=== PATIENT | male | born 1980 | race Caucasian/White ===

== ENCOUNTER 2021-04-09 20:24 | Inpatient (IN) | payer BC, OTHER ==
[~2021-04-09] VITALS: Ht 193 cm; Wt 86.4 kg
[~2021-04-09 20:24] MED LIST: CYCL-1 PO
[2021-04-09] MEDS ORDERED: morphine 4 MG/ML inj SYRINge IV ONE (20:45)
[2021-04-09] MEDS ORDERED: temazepam 15mg capsule PO PRN (21:00)
[2021-04-09] MEDS ORDERED: fentaNYL/PF 50MCG/1 ML 2ML syringe IV ONE (21:15)
[2021-04-09] MEDS ORDERED: fentaNYL/PF 50MCG/1 ML 2ML syringe ONE (21:16)
[2021-04-09 22:21] LABS: BASOPHILS % (AUTO) 0.2 % (0-1); EOSINOPHILS % (AUTO) 0 % (0-6); HEMATOCRIT 43.3 % (42.0-52.0); HEMOGLOBIN 14.7 g/dl (14.0-17.9); LYMPHOCYTES # (AUTO) 0.6 X10'3 (1.1-4.8); LYMPHOCYTES % (AUTO) 5.2 % (21-51); MEAN CORPUSCULAR HEMOGLOBIN 30.4 PG (27.0-31.0); MEAN CORPUSCULAR HGB CONC 34.1 g/dL (33.0-36.5); MEAN CORPUSCULAR VOLUME 89.3 FL (78-98); MEAN PLATELET VOLUME 9.3 FL (7.4-10.4); MONOCYTES # (AUTO) 0.6 X10'3 (0-0.9); MONOCYTES % (AUTO) 5.7 % (2-12); NEUTROPHILS # (AUTO) 9.8 X10'3 (1.8-7.7); NEUTROPHILS % (AUTO) 88.9 % (42-75); PLATELET COUNT 138 X10'3 (140-440); RED BLOOD COUNT 4.85 X10'6 (4.70-6.10); RED CELL DISTRIBUTION WIDTH 12.5 % (11.5-14.5)
[2021-04-09 22:28] LABS: PARTIAL THROMBOPLASTIN TIME 25 SECONDS (22-32)
[2021-04-09 22:30] LABS: ALANINE AMINOTRANSFERASE 25 U/L (12-78); ALBUMIN 4.2 G/DL (3.4-5.0); ALBUMIN/GLOBULIN RATIO 1.6 (1.1-1.5); ALKALINE PHOSPHATASE 68 IU/L (46-116); ANION GAP 8 (8-16); ASPARTATE AMINO TRANSFERASE 17 U/L (10-37); BILIRUBIN,TOTAL 0.4 MG/DL (0.1-1.0); BLOOD UREA NITROGEN 24 MG/DL (7-18); BUN/CREATININE RATIO 21.2 (5.4-32.0); CALCIUM 8.3 MG/DL (8.5-10.1); CHLORIDE 107 MMOL/L (99-107); CREATININE 1.13 MG/DL (0.60-1.10); GLUCOSE 117 MG/DL (70-104); POTASSIUM 3.9 MMOL/L (3.5-5.1); SODIUM 143 MMOL/L (135-145); TOTAL CARBON DIOXIDE 27.7 MMOL/L (24-32); TOTAL PROTEIN 6.9 G/DL (6.4-8.2); eGFR 72 ML/MIN
[2021-04-09] MEDS ORDERED: morphine 4 MG/ML inj SYRINge IV PRN (23:10)
[2021-04-09] MEDS ORDERED: NO HOME MEDS (23:18)
[2021-04-09] MEDS ORDERED: acetaminophen 650mg rectal suppository RC PRN (23:20)
[2021-04-09] MEDS ORDERED: ondansetron 4mg rapidly disintigrating tab PO PRN (23:20)
[2021-04-09] MEDS ORDERED: magnesium hydroxide 30ml (MOM) UD suspension PO PRN (23:20)
[2021-04-09] MEDS ORDERED: HYDROcodone/acetaminophen 5mg/325mg tablet PO PRN (23:20)
[2021-04-09] MEDS ORDERED: diphenhydrAMINE 25mg capsule PO PRN (23:20)
[2021-04-09] MEDS ORDERED: acetaminophen 325mg tablet PO PRN ×2 (23:20)
[2021-04-09] MEDS ORDERED: bisacodyl 10mg suppository rectal RC PRN (23:20)
[2021-04-09] MEDS ORDERED: ondansetron/PF 4mg/2ml inj IV PRN (23:20)
[2021-04-09] MEDS ORDERED: morphine 2 MG/ML inj. syringe IV PRN ×2 (23:20)
[2021-04-09] MEDS ORDERED: diphenhydrAMINE 50 mg/ml inj IV PRN (23:20)
[2021-04-09] MEDS ORDERED: mag hydrox/Alum hydrox/simeth 30ml oral suspension PO PRN (23:20)
[2021-04-09 23:38] LABS: HEMOGLOBIN A1C 5.3 % (4.5-6.2)
[2021-04-09] MEDS: HYDROcodone/acetaminophen 10/325mg tab PO PRN (23:42)
[2021-04-09] MEDS: pantoprazole 40 MG vial IV SCH (23:43)
[2021-04-09] MEDS: normal saline 1000ml 1,000 ML IV SCH (23:43)
[2021-04-09 23:45] LABS: PHOSPHORUS 2.5 MG/DL (2.3-4.5)
[2021-04-09] MEDS: heparin, porcine 5000 units/ml vial SQ SCH (23:52)
[2021-04-10] VITALS (13 sets, daily range): BP systolic 97–130; BP diastolic 51–76
[2021-04-10 01:40] LABS: CLARITY,URINE CLEAR (Clear); COLOR,URINE YELLOW (Yellow); GLUCOSE, URINE NEGATIVE (Neg); KETONES,URINE NEGATIVE (Neg); LEUKOCYTE ESTERASE ,URINE NEGATIVE (Neg); NITRITES, URINE NEGATIVE (Neg); OCCULT BLOOD,URINE TRACE-LYSED (Neg); PH,URINE 6.5 (4.8-8.0); PROTEIN,URINE TRACE mg/dl (Neg); UA COLLECTION TYPE CLN CATCH MIDSTREAM; UROBILINOGEN,URINE 0.2 E.U/dL (0.2-1.0)
[2021-04-10 01:41] LABS: RBC,URINE 0-2 /HPF (0-2); WBC,URINE NONE SEEN /HPF (0-4)
[2021-04-10 01:42] LABS: BACTERIA,URINE NONE SEEN /HPF (Neg); CAL OXALATE CRYSTALS FEW /HPF (NEGATIVE); SQUAMOUS EPITHELIAL CELL,UR NONE SEEN /LPF (FEW)
[2021-04-10 01:47] LABS: URINE AMPHETAMINE SCREEN NEGATIVE (Neg); URINE BARBITUATE SCREEN NEGATIVE (Neg); URINE BENZODIAZEPINES SCREEN NEGATIVE (Neg); URINE CANNABINOID SCREEN NEGATIVE (Neg); URINE COCAINE SCREEN NEGATIVE (Neg); URINE METHADONE SCREEN NEGATIVE (Neg); URINE OPIATE SCREEN POSITIVE (Neg); URINE PHENCYCLIDINE SCREEN NEGATIVE (Neg)
[2021-04-10] MEDS: HYDROmorphone inj. 0.5 MG/0.5 ML DISP.SYRIN IV PRN ×2 (02:17→06:38)
[2021-04-10] MEDS ORDERED: ringers solution, lacted 1,000 ML IV ONE (02:35)
[2021-04-10] MEDS: HYDROcodone/acetaminophen 10/325mg tab PO PRN ×2 (07:26→14:57)
[2021-04-10] MEDS ORDERED: docusate sod 100mg capsule PO SCH (08:00)
[2021-04-10] MEDS: heparin, porcine 5000 units/ml vial SQ SCH (08:00)
[2021-04-10] MEDS: pantoprazole 40 MG vial IV SCH (08:43)
[2021-04-10] MEDS ORDERED: HYDROmorphone inj. 0.5 MG/0.5 ML DISP.SYRIN IV ONE (09:50)
[2021-04-10] MEDS: normal saline 1000ml 1,000 ML IV SCH (10:28)
--- NOTE | 2021-04-10 11:01 | NUR ---
PER PT OK TO GIVE HIS GIRLFRIEND WILLIAM INFORMATION. KRYSTINA
[2021-04-10] MEDS ORDERED: cefazolin/dext.iso 2gm/100ml 100 ML IV ONE (11:43)
[2021-04-10] MEDS ORDERED: ringers solution, lacted 1,000 ML IV SCH ×2 (11:50→14:10)
[2021-04-10] MEDS ORDERED: sevoflurane 250ml liquid IH ONE (13:03)
[2021-04-10] MEDS ORDERED: midazolam 1 mg/ML 2ml injection ONE (13:06)
[2021-04-10] MEDS ORDERED: fentaNYL /PF 50mcg/ml 5ml ampule ONE (13:06)
[2021-04-10] MEDS ORDERED: propofol inj 20 ML IV ONE (13:22)
[2021-04-10] MEDS ORDERED: rocuronium 10mg/ml inj IV ONE (13:22)
[2021-04-10] MEDS ORDERED: LIDOcaine 2% (20mg/ml) 5ml vial ONE (13:23)
[2021-04-10] MEDS ORDERED: BUPIVAcaine 0.5% inj/PF 30 ML ONE (13:28)
--- NOTE | 2021-04-10 13:40 | NUR ---
Received from OR via , accompanied by Anesthesiologist and report given by Anesthesiolgist. PATIENT A&OX4, DENIES PAIN, V/S WNL, CSM INTACT, 20G PIV RUE, DRESSING TO LEFT HIP CDI SCD ON.
[2021-04-10] MEDS ORDERED: neostigmine methylsulfate 1 MG/ML 10ml vial ONE (13:47)
[2021-04-10] MEDS ORDERED: dexamethasone sod phosphate 4mg/ml inj. ONE (13:47)
[2021-04-10] MEDS ORDERED: ondansetron/PF 4mg/2ml inj ONE (13:47)
[2021-04-10] MEDS ORDERED: acetaminophen 1,000mg/100ml IV 100 ML IV ONE (13:47)
[2021-04-10] MEDS ORDERED: glycopyrrolate 0.2mg/ml inj ONE (13:47)
[2021-04-10] MEDS ORDERED: meperidine/PF 25mg/ml syringe IV PRN ×3 (14:10)
[2021-04-10] MEDS ORDERED: ondansetron/PF 4mg/2ml inj IV PRN (14:10)
[2021-04-10] MEDS ORDERED: proCHLORperazine 10 MG/2 ml inj IV PRN (14:10)
[2021-04-10] MEDS ORDERED: morphine 4 MG/ML inj SYRINge IV PRN (14:10)
[2021-04-10] MEDS ORDERED: morphine 2 MG/ML inj. syringe IV PRN (14:10)
--- NOTE | 2021-04-10 16:40 | NUR ---
PATIENT A&OX4, DENIES PAIN, V/S WNL, CSM INTACT, 20G PIV RUE D/C, DRESSING TO LEFT HIP CDI SCD OFF. I HAVE REVIEWED D/C INSTRUCTIONS WITH PATIENT AND THEY HAVE VERBALIZED UNDERSTANDING. PATIENT SENT HOME WITH ALL BELONGINGS AND CRUTCHES PROVIDED AND FAMILY GAVE TRANSPORT.
--- NOTE | 2021-04-10 17:00 | NUR ---
PATIENT/FAMILY CALLED SAYING MED SCRIPT WAS NOT AT THERE PHARMACY AND REQUESTED MEDS FOR PAIN AND FOR IT TO BE SENT TO [facility] ON [address] [facility]. I CALLED DR DENISE AND EXPLAINED THE ISSUE AND HE STATED THAT HE WOULD ELECTRONICALLY SEND THE SCRIPT RIGHT AWAY TO THE [facility] ON [address]. HE STATED IT WOULD PROBABLY TAKE THEM AN HOUR TO PROCESS THE ORDER. I THEN CALLED THE THE PATIENT/FAMILY BACK AND NOTIFIED THEM OF WHAT DR DENISE COMMUNICATED TO ME.
[2021-04-11] MEDS ORDERED: pantoprazole 40mg Tablet.DR PO SCH (07:30)
== END 2021-04-10 16:40 | disposition home or self-care (01) | DRG 481 ==
LOC: ER 20:25 → UNDOADMIN 23:16 → ED HOLD 23:16 → PAS IN 04-10 06:47
PROVIDERS: ADMIT Family Medicine; ATTEND Family Medicine
PROC: 0QS734Z Reposition Left Upper Femur with Internal Fixation Device, Percutaneous Approach (ICD-10-PCS; principal; 2021-04-10 13:03)
DX: S72.002A Fracture of unspecified part of neck of left femur, initial encounter for closed fracture (principal); N17.9 Acute kidney failure, unspecified; Z20.822 Contact with and (suspected) exposure to COVID-19; D69.6 Thrombocytopenia, unspecified; E86.0 Dehydration; V00.131A Fall from skateboard, initial encounter; Y93.51 Activity, roller skating (inline) and skateboarding; Y92.89 Other specified places as the place of occurrence of the external cause
CPT/HCPCS: 36415; 71045; 72192; 73502; 76000; 80053; 80305; 81001; 83036; 83735; 83880; 84100; 85025; 85610; 85730; 86885; 86900; 86901; 87635; 93005; 99285; A4618; A6446; A7000; C1713; C9113; C9803; G0378; J0131; J1100; J1170; J2001; J2175; J2250; J2270; J2405; J2704; J2710; J3010; J3490; J7030; J7120